=== PATIENT | female | born 1960 | race Caucasian/White ===

== ENCOUNTER → 2019-09-02 10:09 | Outpatient (CLI) | payer BC, SELFPAY ==
--- NOTE | ~2019-09-02 | XR_ITS ---
XR knee RT 3V 09/02/2019 10:54 INDICATION: Right knee pain PROCEDURE: 3 views right knee COMPARISON: No prior studies for comparison. FINDINGS: Fracture, dislocation or subluxation is not identified. No significant joint effusion. Ther e is chondrocalcinosis. The soft tissues appear within normal limits. No foreign bodies are identifi ed. IMPRESSION: 1: Chondrocalcinosis. Reviewed, dictated and finalized at location B. NG DESIGN SPECIALIST IMPRESSION: 1: Chondrocalcinosis.
== END ==
PROVIDERS: PCP Family Medicine; Visit Provider Physician Assistant
DX: M25.569 Pain in unspecified knee (principal)
CPT/HCPCS: 73562

== ENCOUNTER 2020-02-04 09:20 | Emergency (ER) | payer BC, SELFPAY ==
[2020-02-04 09:37] VITALS: BP 131/71; PULSE 62; RESP 16; TEMP 37.4; O2SAT 100
--- NOTE | 2020-02-04 09:53 | ED.EAR ---
HPI - Ear Problem General Chief complaint: Ear Stated complaint: left ear pain Time Seen by Provider: 02/04/20 09:54 Source: patient Mode of arrival: ambulatory Limitations: no limitations History of Present Illness HPI Narrative: Molly Vega is a 60 yo female with a PMH of irregular heart rate, hypothyroid, high cholesterol, osteoporosis, who comes to express care with left ear pain that started yesterday after working outside yesterday. States she has congestion, has recurrent left scalp tenderness with ear pain internal X and external. Is here for antibiotic, which she states takes care of this ear issue Related Data Home Medications Medication Instructions Recorded Confirmed atenolol 50 mg tablet 50 mg PO DAILY 09/01/19 09/01/19 estradiol 1 gm VAGINAL WEEKLY 09/01/19 09/01/19 Allergies Allergy/AdvReac Type Severity Reaction Status Date / Time adhesive tape Allergy Severe RASH Verified 09/02/19 10:04 pollen extracts Allergy Unknown Unknown Verified 09/02/19 10:04 Review of Systems Review of Systems: Narrative: CONSTITUTIONAL: Denies fever, chills, sweats. EYES: Denies visual changes, redness, discharge. ENT: Mild rhinorrhea, congestion, sore throat, left otalgia. CARDIOVASCULAR: Denies chest pain, palpitations, edema. RESPIRATORY: Denies dyspnea, wheezing, cough GASTROINTESTINAL: Denies abdominal pain, nausea, vomiting, diarrhea. GENITOURINARY: Denies dysuria, hematuria, abnormal discharge SKIN: Denies rash or itching. NEUROLOGIC: Denies numbness, or focal weakness. PSYCHIATRIC: Denies anxiety or depression. [facility] Past Medical History Medical History Breast cancer History of vaginal delivery x 2 HLD (hyperlipidemia) Hypertension Hypothyroidism Irregular heart rhythm Surgical History Surgical History H/O total hysterectomy with bilateral salpingo-oophorectomy (BSO) History of mastectomy Family History Family History Mother Carcinoma of colon Father Hypertension Other Family history of cardiovascular disease Social History Social History Smoking status: Never smoker Second hand tobacco smoke exposure: No Alcohol intake: current Comments At time of signature, I agree with nursing past medical, surgical, social and family history. There is no relevant family history pertinent to the presenting complaint. Exam Narrative: Exam Narrative: GENERAL: This is a well-nourished, well-developed patient, in mild distress. HEAD: normocephalic, atraumatic. EYES: Sclera clear/white. Vision is grossly intact. EARS: External ears normal, auditory canals clear on right, left ear is erythematous and with drainage, TMs normal without perforation. Hearing grossly intact. NOSE: External nose normal without nasal discharge, nares without redness, mild rhinorrhea. THROAT: Mucous membranes moist, posterior pharynx erythema NECK: Neck supple, CARDIOVASCULAR: Regular rate and rhythm without murmurs, gallops, or rubs. RESPIRATORY: Clear to auscultation. Breath sounds equal bilaterally. No wheezes, rales, or rhonchi. GASTROINTESTINAL: Abdomen soft, SKIN: warm, intact with no suspicious lesions or rash, good texture and turgor. NEURO: awake, alert, and oriented to person, place and time. There were no obvious focal neurologic abnormalities. Steady gait EXTREMITIES: Normal range of motion. BACK: Nontender without deformity Course Course Emergency Course: Discussed with client started on eardrops and antibiotic Patient states this is recurrent yearly for her and she needs several antibiotic to actually clear her ear pain Vital Signs Vital signs: Vital Signs Temperature 99.3 F 02/04/20 09:37 Pulse Rate 62 02/04/20 09:37 Respiratory Rate 16 02/04/20 09:37 Blood Pressure 131
== END 2020-02-04 10:14 | disposition home or self-care (01) ==
PROVIDERS: Emergency Provider Nurse Practitioner; PCP Family Medicine
DX: H60.312 Diffuse otitis externa, left ear (principal); E78.5 Hyperlipidemia, unspecified; I10 Essential (primary) hypertension; E03.9 Hypothyroidism, unspecified; Z85.3 Personal history of malignant neoplasm of breast; Z90.10 Acquired absence of unspecified breast and nipple
CPT/HCPCS: 99213; G0463

== ENCOUNTER → 2020-02-22 13:26 | Outpatient (CLI) | payer BC, SELFPAY ==
--- NOTE | ~2020-02-22 | DEXA_ITS ---
Bone Density Report Name: Molly Vega Age: 60 Sex: Female Ethnicity: White Date of : 1960 Indication: postmenopausal; screening for osteoporosis; height loss; hysterectomy; Referring Provider: Cristine Ribeiro Study: Bone densitometry was performed. Exam Date: February 22, 2020 Accession number: [id number] Bone Density: Region BMD T-score Z-score Classification AP Spine (L1-L4) 0.940 -1.0 0.4 Normal Femoral Neck (Left) 0.679 -1.5 -0.2 Osteopenia Total Hip (Left) 0.867 -0.6 0.3 Normal Femoral Neck (Right) 0.690 -1.4 -0.1 Osteopenia Total Hip (Right) 0.884 -0.5 0.5 Normal Total Hip Mean 0.876 -0.6 0.4 Normal World Health Organization criteria for BMD impression classify patients as: Normal (T-score at or above -1.0), Osteopenia (T-score between -1.0 and -2.5), or Osteoporosis (T-score at or below -2.5). 10-year Fracture Risk: FRAX not reported because: Treated for osteoporosis Clinical Information Provided by Patient: Is being treated for osteoporosis Has used the following medications: Actonel (i.e. risedronate), Vitamin D, Calcium Has the following medical conditions: Hysterectomy Patient maximum height was 61 Menopause Age: 40 Drinks caffeinated beverages Onset of menses at age 10 Number of children 2 Impression: The patient has low bone mass, based on the Left Femoral Neck T-score. Discussion: It is important to ask patients whether they are taking their medications and to encourage continued and appropriate compliance with their osteoporosis therapies to reduce fracture risk. It is also important to review their risk factors and encourage appropriate calcium and vitamin D intakes, exercise, fall prevention and other lifestyle measures. Follow-Up: Consider a repeat BMD and Vertebral Fracture Assessment (VFA) exam in 2 years or sooner if medically necessary, to reassess this patient's status. Reported by: [facility] on 02/22/2020 2:27:00 PM. Reviewed, dictated and finalized at location ACasie LYNCH
== END ==
PROVIDERS: PCP Family Medicine; Visit Provider Student in an Organized Health Care Education/Training Program
DX: Z78.0 Asymptomatic menopausal state (principal); M85.852 Other specified disorders of bone density and structure, left thigh; M85.851 Other specified disorders of bone density and structure, right thigh
CPT/HCPCS: 77080

== ENCOUNTER 2020-09-21 07:43 | Outpatient (CLI) | payer BC, SELFPAY ==
[2020-09-21 09:22] LABS: Hepatitis B Surface Antigen Negative (Negative)
[2020-09-21 09:28] LABS: HAV RESULT Negative (Negative); Hepatitis B Core IgM Result Negative (Negative)
[2020-09-21 09:40] LABS: Hepatitis C Virus Antibody Negative (Negative)
[2020-09-21 10:23] LABS: Alanine Aminotransferase 97 U/L (4-35); Albumin Level 4.1 g/dL (3.5-5.1); Alkaline Phosphatase 62 U/L (38-126); Aspartate Amino Transferase 60 U/L (14-36); Bilirubin,Total 0.4 mg/dL (0.2-1.3)
== END 2020-09-21 07:44 | disposition home or self-care (01) ==
PROVIDERS: PCP Family Medicine; Visit Provider Physician Assistant
DX: R79.89 Other specified abnormal findings of blood chemistry (principal)
CPT/HCPCS: 36415; 80074; 80076

== ENCOUNTER 2020-09-25 10:00 | Outpatient (CLI) | payer BC, SELFPAY ==
--- NOTE | ~2020-09-25 | US_ITS ---
US abdomen limited INDICATION: Abnormal laboratory values. PROCEDURE: Realtime right upper abdominal ultrasound. COMPARISON: No prior studies for comparison. FINDINGS: The pancreas is normal without focal mass or pancreatic ductal dilation. Liver echotexture is normal without focal mass or intrahepatic biliary dilatation. There is normal directional flow i n the portal vein. The gallbladder is normal without stones, gallbladder wall thickening or pericholecystic fluid. Comm on bile duct measures 3 mm. No sonographic Antonio's sign. IMPRESSION: 1: Normal limited abdominal ultrasound. Reviewed, dictated and finalized at location B.
== END 2020-09-25 10:01 | disposition home or self-care (01) ==
PROVIDERS: PCP Family Medicine; Visit Provider Physician Assistant
DX: R79.89 Other specified abnormal findings of blood chemistry (principal)
CPT/HCPCS: 76705

== ENCOUNTER → 2021-02-12 10:19 | Outpatient (CLI) | payer BC, SELFPAY ==
--- NOTE | ~2021-02-12 | XR_ITS ---
XR knee RT 3V 02/12/2021 10:45 Indication: Right knee pain Procedure: 3 views right knee Comparison: 09/02/2019 Findings: There is chondrocalcinosis. No fracture, subluxation or dislocation. No significant joint s pace narrowing. No foreign bodies. Impression: 1: Chondrocalcinosis of the right knee. Reviewed, dictated and finalized at location A. Impression: 1: Chondrocalcinosis of the right knee.
== END ==
PROVIDERS: PCP Family Medicine; Visit Provider Physician Assistant
DX: M11.261 Other chondrocalcinosis, right knee (principal)
CPT/HCPCS: 73562

== ENCOUNTER 2021-03-30 15:02 | Emergency (ER) | payer BC, SELFPAY ==
--- NOTE | ~2021-03-30 | XR_ITS ---
EXAMINATION: XR chest 2V DATE: 03/30/2021 15:29 INDICATION: Heart palpitations TECHNIQUE: PA and lateral views of the chest are obtained. COMPARISON: 04/23/2018 FINDINGS: The lungs are free of acute opacities. Calcified nodule of the left lower lobe is consisten t with old granulomatous disease. There is no pleural effusion or pneumothorax. The cardiomediastinal silhouette is normal. There is moderate thoracic spondylosis. There are changes of bilateral mastect kimberlyn and bilateral axillary lymph node dissection. IMPRESSION: 1. No acute cardiopulmonary abnormality. Reviewed, dictated and finalized at location A.
--- NOTE | 2021-03-30 15:03 | ECG_ITS ---
Measurements Intervals [place] Rate: 71 P: 50 [place]: 134 QRS: -27 QRSD: 83 T: 44 QT: 421 QTc: 459 Interpretive Statements SINUS RHYTHM VENTRICULAR PREMATURE COMPLEX POSSIBLE LEFT ATRIAL ENLARGEMENT CANNOT RULE OUT SEPTAL INFARCT, AGE INDETERMINATE ABNORMAL ECG Electronically Signed On 03-31-2021 8:58:48 CDT by Kem Moreno D.O.
[2021-03-30 15:04] VITALS: BP 166/67; PULSE 85; RESP 18; TEMP 36.7; O2SAT 100
[2021-03-30 15:17] LABS: Basophils Absolute Auto 0.1 K/mm3 (0.0-0.1); Basophils Percent Auto 0.6 % (0.2-1.2); Eosinophils Absolute Auto 0.4 K/mm3 (0-0.3); Eosinophils Percent Auto 4.1 % (0-4.4); Hematocrit 39.2 % (37.0-47.0); Hemoglobin 12.9 g/dL (12.0-15.0); Immature Granulocyte Absolute 0.02 K/mm3 (0.00-0.031); Immature Granulocyte Percent A 0.2 % (0-0.5); Lymphocytes Absolute Auto 3.11 K/mm3 (0.9-3.2); Lymphocytes Percent Auto 36.7 % (18.3-44.2); Mean Corpuscular HGB Conc 32.9 g/dl (32-36); Mean Corpuscular Hemoglobin 30.9 pg (26-34); Mean Platelet Volume 9.2 fl (7.4-10.4); Monocytes Absolute Auto 0.8 K/mm3 (0.1-0.6); Monocytes Percent Auto 9.6 % (2.6-8.5); Neutrophils Absolute Auto 4.1 K/mm3 (1.3-6.7); Neutrophils Percent Auto 48.8 % (45.5-73.1); Platelet Count Result 265 k/mm3 (150-375); Red Blood Count 4.17 M/mm3 (4.2-5.4); Red Cell Distribution Width 13.2 % (11.5-14.5); White Blood Count 8.5 K/mm3 (4.5-10.0)
[2021-03-30 15:29] LABS: Anion Gap 9 mmol/L (8-16); Blood Urea Nitrogen 23 mg/dL (7-17); Calcium 9.7 mg/dL (8.4-10.2); Carbon Dioxide 28 mmol/L (22-30); Chloride 101 mmol/L (98-107); Estimated Glomerular Filt Rate > 60; Glucose 111 mg/dL (65-110); Potassium 4.3 mmol/L (3.4-5.0); Sodium 138 mmol/L (137-145)
[2021-03-30 15:31] LABS: INR 0.9
[2021-03-30 15:32] LABS: Partial Thromboplastin Time 26.7 SECONDS (22.3-36.8)
[2021-03-30 15:40] LABS: Troponin I < 0.012 ng/mL (0.000-0.034)
--- NOTE | 2021-03-30 18:37 | PC.NURSE ---
pt to desk stating she is going to leave. pt amb out of ed with no issue and in no distress.
== END 2021-03-30 18:37 | disposition left against medical advice (07) ==
PROVIDERS: Emergency Provider Emergency Medicine; PCP Family Medicine
DX: R00.2 Palpitations (principal)
CPT/HCPCS: 36415; 71046; 80048; 84484; 85025; 85610; 85730; 93005; 99199

== ENCOUNTER 2021-08-29 09:26 | Emergency (ER) | payer BC, SELFPAY ==
[2021-08-29 09:37] VITALS: BP 116/73; PULSE 84; RESP 16; TEMP 37.3; O2SAT 100
--- NOTE | 2021-08-29 09:41 | ED.URI ---
HPI - URI/Sore Throat General Chief Complaint: Upper Respiratory Infection Stated Complaint: URI Time Seen by Provider: 08/29/21 10:00 Source: patient and RN notes reviewed Mode of arrival: ambulatory Limitations: no limitations History of Present Illness HPI Narrative: 61-year-old female who presents to [facility] with complaints of 1 week duration of low grade fevers, sinus pressure and drainage with scratchy throat. Patient states that she has left frontal headache and pressure to her face and has had copious amounts of nasal drainage. She reports that he has been taking Chastity and using Nasacort spray and has been taking Coricidin brand decongestant without improvement in her symptoms.Patient has had COVID, and Flu immuizations. MD elicited complaint: rhinorrhea and nasal congestion Related Data Home Medications Medication Instructions Recorded Confirmed atenolol 50 mg tablet 50 mg PO DAILY 09/01/19 08/29/21 aspirin 81 mg tablet,delayed 81 mg PO DAILY 02/07/20 08/29/21 release calcium carbonate 600 mg-vitamin 1 tablet PO DAILY 02/07/20 08/29/21 D3 20 mcg (800 unit) chewable tablet cholecalciferol (vitamin D3) 25 25 mcg PO DAILY 03/06/20 08/29/21 mcg (1,000 unit) capsule fexofenadine [Chastity] 180 mg PO DAILY 08/29/21 08/29/21 triamcinolone acetonide [Nasacort] 2 spray INTRANASAL DAILY 08/29/21 08/29/21 Allergies Allergy/AdvReac Type Severity Reaction Status Date / Time adhesive tape Allergy Severe RASH Verified 08/29/21 09:59 pollen extracts Allergy Unknown Unknown Verified 08/29/21 09:59 Review of Systems Review of Systems: CONSTITUTIONAL:Low grade fever, chills, or sweats. EYES: Denies visual changes, redness, or discharge. ENT: Positive for rhinorrhea, congestion, sore throat,no otalgia. CARDIOVASCULAR: Denies chest pain, palpitations, or edema. RESPIRATORY:Some cough denies dyspnea. GASTROINTESTINAL: Denies abdominal pain, nausea, vomiting, or diarrhea. GENITOURINARY: Denies dysuria or hematuria. SKIN: Denies rash or itching. MUSCULOSKELETAL: Denies back pain, joint pain, or myalgia. NEUROLOGIC: Positive for headache, numbness, or weakness. PSYCHIATRIC: Denies anxiety or depression. All systems reviewed & are unremarkable except as noted in HPI and below PMFSH Past Medical History Medical History Breast cancer History of vaginal delivery x 2 HLD (hyperlipidemia) Hypertension Hypothyroidism Irregular heart rhythm Normal colonoscopy (~11/2017) Repeat 5 years Squamous cell carcinoma of left shoulder Surgical History Surgical History H/O total hysterectomy with bilateral salpingo-oophorectomy (BSO) History of mastectomy bilaterally Family History Family History Mother Carcinoma of colon Heart disease Father Hypertension Celiac disease Arthritis Heart valve replaced Other Family history of cardiovascular disease Social History Social History Second hand tobacco smoke exposure: No Alcohol intake: current Alcohol use details: socially; seldom Substance use: never Substance use type: does not use Gender identity (if verbalized by the patient): Female Comments At time of signature, agree with nursing past medical, surgical, social and family history. There is no relevant family history pertinent to the presenting complaint Exam Narrative: GENERAL: Well-appearing, well-nourished, and in no acute distress. HEAD: Normocephalic, atraumatic. EYES: PERRLA and EOMI. ENT: Nares red with rhinorrhea no epistaxis. Mucous membranes moist.TM's normal with good light reflex, throat red with no lesions or exudates,no tonsil swelling, post nasal drainage present NECK: Supple. no lymphadenopathy CHEST: Clear to auscultation. No respiratory distress.SAO2 100%
== END 2021-08-29 10:20 | disposition home or self-care (01) ==
PROVIDERS: Emergency Provider Registered Nurse; PCP Family Medicine
DX: J01.90 Acute sinusitis, unspecified (principal); E78.5 Hyperlipidemia, unspecified; I10 Essential (primary) hypertension; E03.9 Hypothyroidism, unspecified; Z85.3 Personal history of malignant neoplasm of breast; Z85.828 Personal history of other malignant neoplasm of skin; Z90.13 Acquired absence of bilateral breasts and nipples; Z90.710 Acquired absence of both cervix and uterus
CPT/HCPCS: 99213; G0463

== ENCOUNTER → 2022-04-01 02:21 | Outpatient (CLI) | payer BC, SELFPAY ==
[2022-04-01 10:42] LABS: SARS-CoV-2 RNA PCR Positive
== END ==
PROVIDERS: PCP Physician Assistant; Visit Provider Physician Assistant
DX: U07.1 COVID-19 (principal)
CPT/HCPCS: C9803; U0003; U0005

== ENCOUNTER 2022-04-14 14:41 | Emergency (ER) | payer BC, SELFPAY ==
[2022-04-14 14:59] VITALS: BP 126/69; PULSE 75; RESP 16; TEMP 37.1; O2SAT 98
--- NOTE | 2022-04-14 15:03 | ED.EXTPRO ---
HPI - Extremity Problem General Chief complaint: Extremity Problem,Nontraumatic Stated complaint: Left Arm Swelling Time Seen by Provider: 04/14/22 15:03 Source: patient, RN notes reviewed and old records reviewed Mode of arrival: ambulatory Limitations: no limitations History of Present Illness HPI Narrative: 62-year-old female presents to the [facility] with complaints of left arm swelling. Was positive for COVID on 01 April, 13 days ago Related Data Home Medications Medication Instructions Recorded Confirmed atenolol 50 mg tablet 50 mg PO DAILY 09/01/19 04/14/22 aspirin 81 mg tablet,delayed 81 mg PO DAILY 02/07/20 04/14/22 release calcium carbonate 600 mg-vitamin 1 tablet PO DAILY 02/07/20 04/14/22 D3 20 mcg (800 unit) chewable tablet (Caltrate 600 plus D) cholecalciferol (vitamin D3) 25 25 mcg PO DAILY 03/06/20 04/14/22 mcg (1,000 unit) capsule fexofenadine 180 mg tablet 180 mg PO DAILY 08/29/21 04/14/22 triamcinolone acetonide 55 mcg 2 spray intranasal DAILY 08/29/21 04/14/22 nasal spray aerosol (Nasacort) Allergies Allergy/AdvReac Type Severity Reaction Status Date / Time adhesive tape Allergy Severe RASH Verified 04/14/22 14:53 pollen extracts Allergy Unknown Unknown Verified 04/14/22 14:53 Review of Systems Review of Systems: All systems reviewed & are unremarkable except as noted in HPI and below Constitutional: Constitutional: Reports no additional constitutional complaints, Denies chills and Denies fever(s) Eyes: Eyes: Reports no additional eye complaints ENT: Reports system reviewed and no additional complaints, except as documented Cardiovascular: Cardiovascular: Reports no additional cardiovascular complaints Respiratory: Respiratory: Reports no additional respiratory complaints Gastrointestinal: Gastrointestinal: Reports no additional gastrointestinal complaints Musculoskeletal: Musculoskeletal: Reports as per HPI Integumentary/Breasts: Skin/Breast: Reports system reviewed and no additional complaints, except as docu Neurologic: Reports system reviewed and no additional complaints, except as documented Psychiatric: Psychiatric: Reports no additional psychiatric complaints Allergic/Immunologic: Allergic/Immunologic: Reports no additional allergic/immunologic complaints PMFSH Past Medical History Medical History Breast cancer History of vaginal delivery x 2 HLD (hyperlipidemia) Hypertension Hypothyroidism Irregular heart rhythm Normal colonoscopy (~11/2017) Repeat 5 years Squamous cell carcinoma of left shoulder Surgical History Surgical History H/O total hysterectomy with bilateral salpingo-oophorectomy (BSO) History of mastectomy bilaterally Family History Family History Mother Carcinoma of colon Heart disease Father Hypertension Celiac disease Arthritis Heart valve replaced Other Family history of cardiovascular disease Social History Social History Smoking status: Never smoker Second hand tobacco smoke exposure: No Alcohol intake: current Alcohol use details: socially; seldom Substance use: never Substance use type: does not use Gender identity (if verbalized by the patient): Female Comments At the time of my signature, I reviewed and agree with the nursing past medical, surgical, social, and family history. There is no relevant family history pertinent to the patient complaint. Exam Const: General: healthy appearing, no acute distress, alert and well nourished Nutritional Appearance: well nourished Orientation/consciousness: patient oriented x3 Limitations: no limitations HENMT: Head: normal to inspection Ears: external ears normal Eyes: General: appearance normal, both eyes and all related struc
== END 2022-04-14 15:26 | disposition home or self-care (01) ==
PROVIDERS: Emergency Provider Nurse Practitioner; PCP Family Medicine
DX: M79.9 Soft tissue disorder, unspecified (principal); E78.5 Hyperlipidemia, unspecified; E03.9 Hypothyroidism, unspecified; Z85.3 Personal history of malignant neoplasm of breast; Z85.828 Personal history of other malignant neoplasm of skin; Z79.82 Long term (current) use of aspirin; Z90.13 Acquired absence of bilateral breasts and nipples
CPT/HCPCS: 99211; G0463

== ENCOUNTER → 2022-06-04 10:59 | Outpatient (CLI) | payer BC, SELFPAY ==
--- NOTE | ~2022-06-04 | DEXA_ITS ---
Bone Density Report Name: DINESH MAHER Age: 62 Sex: Female Ethnicity: White Date of : 1960 Indication: monitoring treatment; height loss; hysterectomy; postmenopausal Referring Provider: Cristine Ribeiro Study: Bone densitometry was performed. Exam Date: June 04, 2022 Accession number: [id number] Bone Density: Region BMD T-score Z-score Classification AP Spine (L1-L4) 1.029 -0.2 1.4 Normal Femoral Neck (Left) 0.713 -1.2 0.2 Osteopenia Total Hip (Left) 0.876 -0.5 0.5 Normal Femoral Neck (Right) 0.674 -1.6 -0.2 Osteopenia Total Hip (Right) 0.857 -0.7 0.4 Normal Total Hip Mean 0.867 -0.6 0.5 Normal World Health Organization criteria for BMD impression classify patients as: Normal (T-score at or above -1.0), Osteopenia (T-score between -1.0 and -2.5), or Osteoporosis (T-score at or below -2.5). 10-year Fracture Risk: FRAX not reported because: Treated for osteoporosis Previous Exams: Region Exam Age BMD T-score BMD Change BMD Change Date g/cm2 vs Baseline vs Previous AP Spine(L1-L4) 06/04/2022 62 1.029 -0.2 0.089* 0.089* 02/22/2020 60 0.940 -1.0 Total Hip(Left) 06/04/2022 62 0.876 -0.5 0.010 0.010 02/22/2020 60 0.867 -0.6 Total Hip(Right) 06/04/2022 62 0.857 -0.7 -0.027 -0.027 02/22/2020 60 0.884 -0.5 *Denotes significance at 95% confidence level, LSC for AP Spine = 0.022 g/cm2, LSC for Total Hip = 0.027 g/cm2 Clinical Information Provided by Patient: Is being treated for osteoporosis Has used the following medications: Actonel (i.e. risedronate), Vitamin D, Calcium Has the following medical conditions: Hysterectomy Patient maximum height was 61 Menopause Age: 40 Drinks caffeinated beverages Onset of menses at age 10 Number of children 2 Impression: The patient has low bone mass, based on the Right Femoral Neck T-score. No significant bone loss was observed. Discussion: PATIENT UNDER TREATMENT WITH NO SIGNIFICANT BMD LOSS SINCE LAST EXAM. In an untreated patient, BMD typically declines with age. A lack of decline or gain is usually a sign that treatment is efficacious and fracture risk is reduced. It is important to ask patients whether they are taking their medications and to encourage continued and appropriate compliance with their osteoporosis therapies to reduce fracture risk. It is also important to review their risk factors and encourage appropriate calcium an
== END ==
PROVIDERS: PCP Family Medicine; Visit Provider Student in an Organized Health Care Education/Training Program
DX: Z78.0 Asymptomatic menopausal state (principal); M85.852 Other specified disorders of bone density and structure, left thigh; M85.851 Other specified disorders of bone density and structure, right thigh
CPT/HCPCS: 77080

== ENCOUNTER 2022-09-19 09:40 | Emergency (ER) | payer BC, SELFPAY ==
[2022-09-19 09:54] VITALS: BP 130/86; PULSE 79; RESP 16; TEMP 37.6; O2SAT 99
--- NOTE | 2022-09-19 10:17 | ED.EAR ---
HPI - Ear Problem General Chief complaint: Upper Respiratory Infection Stated complaint: swollen lymph nodes, left ear pressure sore throat Time Seen by Provider: 09/19/22 10:17 Source: patient Mode of arrival: ambulatory Limitations: no limitations History of Present Illness HPI Narrative: 62-year-old female presents with complaint nasal congestion, sinus pressure, postnasal drainage, sore throat, left ear pain for 10 days. Patient is taking [id number] Coricidin and Nasacort. Symptoms are not improving. States left ear pain started yesterday. Feels like left side of face is swollen. Afebrile. All systems reviewed and negative except as noted above. Related Data Home Medications Medication Instructions Recorded Confirmed atenolol 50 mg tablet 50 mg PO DAILY 09/01/19 04/14/22 aspirin 81 mg tablet,delayed 81 mg PO DAILY 02/07/20 04/14/22 release calcium carbonate 600 mg-vitamin 1 tablet PO DAILY 02/07/20 04/14/22 D3 20 mcg (800 unit) chewable tablet (Caltrate 600 plus D) cholecalciferol (vitamin D3) 25 25 mcg PO DAILY 03/06/20 04/14/22 mcg (1,000 unit) capsule fexofenadine 180 mg tablet 180 mg PO DAILY 08/29/21 04/14/22 triamcinolone acetonide 55 mcg 2 spray intranasal DAILY 08/29/21 04/14/22 nasal spray aerosol (Nasacort) Allergies Allergy/AdvReac Type Severity Reaction Status Date / Time adhesive tape Allergy Severe RASH Verified 09/19/22 10:10 pollen extracts Allergy Unknown Unknown Verified 09/19/22 10:10 Review of Systems Review of Systems: CONSTITUTIONAL: Denies fever, chills, or sweats. EYES: Denies visual changes, redness, or discharge. ENT: Reports rhinorrhea, congestion, sinus pressure,sore throat, and left ear pain. CARDIOVASCULAR: Denies chest pain, palpitations, or edema. RESPIRATORY: Denies cough or dyspnea. GASTROINTESTINAL: Denies abdominal pain, nausea, vomiting, or diarrhea. GENITOURINARY: Denies dysuria or hematuria. SKIN: Denies rash or itching. MUSCULOSKELETAL: Denies back pain, joint pain, or myalgia. NEUROLOGIC: Denies headache, numbness, or weakness. PSYCHIATRIC: Denies anxiety or depression. All other systems reviewed are negative, except as documented in HPI. [facility] Past Medical History Medical History Breast cancer History of vaginal delivery x 2 HLD (hyperlipidemia) Hypertension Hypothyroidism Irregular heart rhythm Normal colonoscopy (~11/2017) Repeat 5 years Squamous cell carcinoma of left shoulder Surgical History Surgical History H/O total hysterectomy with bilateral salpingo-oophorectomy (BSO) History of mastectomy bilaterally Family History Family History Mother Carcinoma of colon Heart disease Father Hypertension Celiac disease Arthritis Heart valve replaced Other Family history of cardiovascular disease Social History Social History Smoking status: Never smoker Second hand tobacco smoke exposure: No Alcohol intake: current Alcohol use details: socially; seldom Substance use: never Substance use type: does not use Living arrangements: with family Occupation/Education: retired Gender identity (if verbalized by the patient): Female Comments At time of signature, agree with nursing past medical, surgical, social and family history. There is no relevant family history pertinent to the presenting complaint. Exam Narrative: GENERAL: This is a well-nourished, well-developed patient, in no apparent distress. HEAD: normocephalic, atraumatic. EYES: PERRL. Sclera clear/white. Vision is grossly intact. EARS: External ears normal, auditory canals clear and without drainage, fluid bilateral TMs, worse to left TM without erythema or perforation. NOSE: External nose normal with Mild erythem
== END 2022-09-19 10:38 | disposition home or self-care (01) ==
PROVIDERS: Emergency Provider Nurse Practitioner Family; PCP Family Medicine
DX: J01.90 Acute sinusitis, unspecified (principal); B96.89 Other specified bacterial agents as the cause of diseases classified elsewhere; E78.5 Hyperlipidemia, unspecified; I10 Essential (primary) hypertension; E03.9 Hypothyroidism, unspecified; Z85.3 Personal history of malignant neoplasm of breast
CPT/HCPCS: 99213; G0463

== ENCOUNTER 2023-04-28 01:22 | Day surgery (SDC) | payer BC, SELFPAY ==
[2023-04-16 15:30] VITALS: BMI 23.9
[2023-04-28 06:13] VITALS: BP 140/89; PULSE 81; RESP 18; TEMP 36.3; O2SAT 98; BMI 23.8
[2023-04-28] MEDS: LACTATED RINGERS 1,000 ML 150 ML IV CONT (06:33)
--- NOTE | 2023-04-28 07:19 | WPDANESEPPF ---
Anes - Initial Pre Proc Eval Procedure: Operation Date: 04/28/23 07:30 Proposed Procedures p Colonoscopy - Easton Chadwick MD Date/Time: 04/28/23 07:19 Surgeon: Easton Chadwick MD Pre Op Diagnosis: history of colon polyps,History of colon cancer Patient Data Age: 63 Gender: F Height: 1.5 m Weight: 53.4 kg Last Vital Signs Temp 97.3 F L 04/28/23 06:13 Pulse 81 04/28/23 06:13 Resp 18 04/28/23 06:13 BP 140/89 04/28/23 06:13 Pulse Ox 98 04/28/23 06:13 O2 Del Method Room Air 04/28/23 06:13 Allergies Allergy/AdvReac Type Severity Reaction Status Date / Time adhesive tape Allergy Severe RASH Verified 04/28/23 06:20 amoxicillin Allergy Severe Swelling Verified 04/28/23 06:20 of Lip/Tongue/Throat pollen extracts Allergy Unknown Unknown Verified 04/28/23 06:20 Home Medications Medication Instructions Recorded Confirmed Type atenolol 50 mg tablet 50 mg PO DAILY 09/01/19 04/28/23 History aspirin 81 mg tablet,delayed 81 mg PO DAILY 02/07/20 04/28/23 History release calcium carbonate 600 mg-vitamin 1 tablet PO DAILY 02/07/20 04/28/23 History D3 20 mcg (800 unit) chewable tablet (Caltrate 600 plus D) cholecalciferol (vitamin D3) 25 25 mcg PO DAILY 03/06/20 04/28/23 History mcg (1,000 unit) capsule fexofenadine 180 mg tablet 180 mg PO DAILY 08/29/21 04/28/23 History triamcinolone acetonide 55 mcg 2 spray intranasal DAILY 08/29/21 04/28/23 History nasal spray aerosol (Nasacort) estradiol 0.01% (0.1 mg/gram) 1 g vaginal 2XW #42.5 grams 02/20/22 04/28/23 Rx vaginal cream (Estrace) meloxicam 15 mg tablet 15 mg PO DAILY #30 tabs 09/25/22 04/28/23 Rx rosuvastatin 10 mg tablet See Rx Instructions .Route 11/10/22 04/28/23 Rx .COMPLEX #90 tabs Synthroid 75 mcg tablet 75 mcg PO DAILY #90 tabs 01/05/23 04/28/23 Rx (levothyroxine) risedronate 35 mg tablet See Rx Instructions .Route 04/13/23 04/28/23 Rx .COMPLEX #12 tabs Patient hx anesthesia problems: none Family hx anesthesia problems: none Results Review: All pre-operative results and documents have been reviewed as part of the pre-operative evaluation. [facility] Past Medical History Medical History Breast cancer History of vaginal delivery x 2 HLD (hyperlipidemia) Hypothyroidism Irregular heart beat Seeing cardiology Irregular heart rhythm Normal colonoscopy (~11/2017) Repeat 5 years Squamous cell carcinoma of left shoulder Surgical History Surgical History H/O total hysterectomy with bilateral salpingo-oophorectomy (BSO) History of mastectomy bilaterally Family History Family History Mother Carcinoma of colon Heart disease Father Hypertension Celiac disease Arthritis Heart valve replaced Other Family history of cardiovascular disease Social History Social History (Updated 11/28/22 @ 08:27 by Ayesha Neal [facility]) Smoking status: Never smoker Second hand tobacco smoke exposure: No Alcohol intake: current Drinks per week: 1 Alcohol use details: socially; seldom Substance use: never Substance use type: does not use Lack of Transportation: No Lack of Food: Never True Current Housing: I Have Housing Concerned About Future Housing: No Difficulty Paying Gas/Electric Bills: No Difficulty Paying for Meds: No Currently Unemployed: No Education: Associate Degree Difficulty w/ Childcare or Family Care: No Living arrangements: with family Occupation/Education: retired Gender identity (if verbalized by the patient): Female Spiritual care concerns: No Anes - Eval Final PreProcedure Day of Procedure 04/28/23 07:19 Patient weight: normal Heart: regular rate and rhythm Lungs: clear to auscultation Airway: Mallampati scale class II Neurological: alert and o
--- NOTE | 2023-04-28 07:27 | PM.HPGS ---
History of Present Illness History of Present Illness Consent: Risks, benefits, and alternatives have been discussed and questions answered. Patient agrees to proceed with procedure. Chief complaint: history of colon polyps,Fam Hx of colon cancer Narrative: Molly Vega is a 63 year old female Presents for screening colonoscopy. Patient's current weight appetite and bowel movements are normal. Patient denies abdominal pain. She has had no bleeding. Family history is significant that her mother had colon cancer. Patient was found to have adenomatous colon polyps at the time of last colonoscopy in 2018. Review of Systems Review of Systems: Review of systems noncontributory. [facility] Past Medical History Medical History Breast cancer History of vaginal delivery x 2 HLD (hyperlipidemia) Hypothyroidism Irregular heart beat Seeing cardiology Irregular heart rhythm Normal colonoscopy (~11/2017) Repeat 5 years Squamous cell carcinoma of left shoulder Surgical History Surgical History H/O total hysterectomy with bilateral salpingo-oophorectomy (BSO) History of mastectomy bilaterally Family History Family History Mother Carcinoma of colon Heart disease Father Hypertension Celiac disease Arthritis Heart valve replaced Other Family history of cardiovascular disease Social History Social History (Updated 11/28/22 @ 08:27 by Ayesha Neal CMA) Smoking status: Never smoker Second hand tobacco smoke exposure: No Alcohol intake: current Drinks per week: 1 Alcohol use details: socially; seldom Substance use: never Substance use type: does not use Lack of Transportation: No Lack of Food: Never True Current Housing: I Have Housing Concerned About Future Housing: No Difficulty Paying Gas/Electric Bills: No Difficulty Paying for Meds: No Currently Unemployed: No Education: Associate Degree Difficulty w/ Childcare or Family Care: No Living arrangements: with family Occupation/Education: retired Gender identity (if verbalized by the patient): Female Spiritual care concerns: No Meds Home Medications and Allergies Home Medications Medication Instructions Recorded Confirmed Type atenolol 50 mg tablet 50 mg PO DAILY 09/01/19 04/28/23 History aspirin 81 mg tablet,delayed 81 mg PO DAILY 02/07/20 04/28/23 History release calcium carbonate 600 mg-vitamin 1 tablet PO DAILY 02/07/20 04/28/23 History D3 20 mcg (800 unit) chewable tablet (Caltrate 600 plus D) cholecalciferol (vitamin D3) 25 25 mcg PO DAILY 03/06/20 04/28/23 History mcg (1,000 unit) capsule fexofenadine 180 mg tablet 180 mg PO DAILY 08/29/21 04/28/23 History triamcinolone acetonide 55 mcg 2 spray intranasal DAILY 08/29/21 04/28/23 History nasal spray aerosol (Nasacort) estradiol 0.01% (0.1 mg/gram) 1 g vaginal 2XW #42.5 grams 02/20/22 04/28/23 Rx vaginal cream (Estrace) meloxicam 15 mg tablet 15 mg PO DAILY #30 tabs 09/25/22 04/28/23 Rx rosuvastatin 10 mg tablet See Rx Instructions .Route 11/10/22 04/28/23 Rx .COMPLEX #90 tabs Synthroid 75 mcg tablet 75 mcg PO DAILY #90 tabs 01/05/23 04/28/23 Rx (levothyroxine) risedronate 35 mg tablet See Rx Instructions .Route 04/13/23 04/28/23 Rx .COMPLEX #12 tabs Allergies Allergy/AdvReac Type Severity Reaction Status Date / Time adhesive tape Allergy Severe RASH Verified 04/28/23 06:20 amoxicillin Allergy Severe Swelling Verified 04/28/23 06:20 of Lip/Tongue/Throat pollen extracts Allergy Unknown Unknown Verified 04/28/23 06:20 Vital Signs Vital Signs - 24 hr 04/28/23 06:13 Temperature 97.3 F L Pulse Rate 81 Respiratory Rate 18 Blood Pressure 140/89 Pulse Oximetry 98 Oxygen Delivery Room Air Exam Narrative:
[2023-04-28 07:54] VITALS: BP 106/59; PULSE 74; RESP 18; O2SAT 96
[2023-04-28 08:04] VITALS: BP 136/79; PULSE 77; RESP 20; O2SAT 99
[2023-04-28 08:14] VITALS: BP 141/82; PULSE 64; RESP 20; O2SAT 99
== END 2023-04-28 08:24 | disposition home or self-care (01) ==
PROVIDERS: PCP Family Medicine; Visit Provider Internal Medicine Gastroenterology
PROC: 0DJD8ZZ Inspection of Lower Intestinal Tract, Via Natural or Artificial Opening Endoscopic (ICD-10-PCS; CPT 45378; principal; 2023-04-28 07:30)
DX: Z12.11 Encounter for screening for malignant neoplasm of colon (principal); D12.2 Benign neoplasm of ascending colon; K63.5 Polyp of colon; K64.8 Other hemorrhoids; E03.9 Hypothyroidism, unspecified; E78.5 Hyperlipidemia, unspecified; Z85.3 Personal history of malignant neoplasm of breast; Z79.82 Long term (current) use of aspirin
CPT/HCPCS: 45385; 88305; J2704; J7120

== ENCOUNTER 2023-06-19 08:07 | Emergency (ER) | payer BC, SELFPAY ==
[2023-06-19 08:18] VITALS: BP 147/83; PULSE 73; RESP 16; TEMP 37.1; O2SAT 100
--- NOTE | 2023-06-19 08:34 | ED.URI ---
HPI - URI/Sore Throat General Chief Complaint: Upper Respiratory Infection Stated Complaint: Sore Throat Time Seen by Provider: 06/19/23 08:22 Source: patient and RN notes reviewed Mode of arrival: ambulatory Limitations: no limitations History of Present Illness HPI Narrative: Patient presents today complaining of a 2 day history of rhinorrhea, headache, sore throat, with sore throat that started last night. Denies fever or any additional symptoms. She has taken Coricidin HBP with mild relief and currently rates her pain 04/07. She did a home COVID test yesterday that was negative. Related Data Home Medications Medication Instructions Recorded Confirmed atenolol 50 mg tablet 50 mg PO DAILY 09/01/19 04/28/23 aspirin 81 mg tablet,delayed 81 mg PO DAILY 02/07/20 04/28/23 release calcium carbonate 600 mg-vitamin 1 tablet PO DAILY 02/07/20 04/28/23 D3 20 mcg (800 unit) chewable tablet (Caltrate 600 plus D) cholecalciferol (vitamin D3) 25 25 mcg PO DAILY 03/06/20 04/28/23 mcg (1,000 unit) capsule fexofenadine 180 mg tablet 180 mg PO DAILY 08/29/21 04/28/23 triamcinolone acetonide 55 mcg 2 spray intranasal DAILY 08/29/21 04/28/23 nasal spray aerosol (Nasacort) Allergies Allergy/AdvReac Type Severity Reaction Status Date / Time adhesive tape Allergy Severe RASH Verified 04/28/23 06:20 amoxicillin Allergy Severe Swelling Verified 04/28/23 06:20 of Lip/Tongue/Throat pollen extracts Allergy Unknown Unknown Verified 04/28/23 06:20 Review of Systems Review of Systems: CONSTITUTIONAL: Denies body aches, fever, chills, or sweats. EYES: Denies visual changes, redness, or discharge. ENT: Denies congestion, or otalgia.+ rhinorrhea, sore throat CARDIOVASCULAR: Denies chest pain, palpitations, or edema. RESPIRATORY: Denies cough or dyspnea. GASTROINTESTINAL: Denies abdominal pain, nausea, vomiting, or diarrhea. GENITOURINARY: Denies dysuria or hematuria. SKIN: Denies rash, itching, or wounds. MUSCULOSKELETAL: Denies back pain, joint pain, or myalgia. NEUROLOGIC: Denies numbness, tingling, or weakness.+ headache PSYCH: Denies depression or anxiety. [facility] Past Medical History Medical History Breast cancer History of vaginal delivery x 2 HLD (hyperlipidemia) Hypothyroidism Irregular heart beat Seeing cardiology Irregular heart rhythm Normal colonoscopy (~11/2017) Repeat 5 years Squamous cell carcinoma of left shoulder Surgical History Surgical History H/O total hysterectomy with bilateral salpingo-oophorectomy (BSO) History of mastectomy bilaterally Family History Family History Mother Carcinoma of colon Heart disease Father Hypertension Celiac disease Arthritis Heart valve replaced Other Family history of cardiovascular disease Social History Social History Smoking status: Never smoker Second hand tobacco smoke exposure: No Alcohol intake: current Drinks per week: 1 Alcohol use details: socially; seldom Substance use: never Substance use type: does not use Lack of Transportation: No Lack of Food: Never True Current Housing: I Have Housing Concerned About Future Housing: No Difficulty Paying Gas/Electric Bills: No Difficulty Paying for Meds: No Currently Unemployed: No Education: Associate Degree Difficulty w/ Childcare or Family Care: No Living arrangements: with family Occupation/Education: retired Gender identity (if verbalized by the patient): Female Spiritual care concerns: No Comments At time of signature, I have reviewed and agree with nursing past medical, surgical, social and family history unless otherwise noted. Please see nursing chart for further information. There is no r
== END 2023-06-19 08:52 | disposition home or self-care (01) ==
PROVIDERS: Emergency Provider Nurse Practitioner; PCP Family Medicine
DX: J06.9 Acute upper respiratory infection, unspecified (principal); E78.5 Hyperlipidemia, unspecified; E03.9 Hypothyroidism, unspecified; Z85.828 Personal history of other malignant neoplasm of skin; Z85.3 Personal history of malignant neoplasm of breast; Z90.13 Acquired absence of bilateral breasts and nipples; Z90.710 Acquired absence of both cervix and uterus
CPT/HCPCS: 87081; 87880; 99213; G0463

== ENCOUNTER → 2023-07-22 10:12 | Outpatient (CLI) | payer BC, SELFPAY ==
--- NOTE | ~2023-07-22 | CT_ITS ---
CT of the Abdomen: Indication: Epigastric swelling Technique: 2.5 mm axial scans were obtained through the abdomen following intravenous administration of 100 cc of Omnipaque 350. Dose reduction technique was used on this scan by utilizing automated ex posure control and iterative reconstruction technique. The dose-length product (DLP) was 194.50 mGy-c m. Findings: Scans through the lung bases demonstrate large calcified left basilar granuloma. The liver, spleen, pancreas, gallbladder, adrenals and kidneys are within normal limits. There are at herosclerotic calcifications of the aorta. . No lymphadenopathy. Visualized bowel loops are unremarkable. No ascites. Impression: No significant abnormalities seen. Reviewed, dictated and finalized at location M. ITAL ADMISSIONS CLERK Impression: No significant abnormalities seen.
[2023-07-22 10:31] LABS: Estimated Glomerular Filt Rate > 60
== END ==
PROVIDERS: PCP Family Medicine; Visit Provider Registered Nurse
DX: R19.06 Epigastric swelling, mass or lump (principal)
CPT/HCPCS: 74160; Q9967

== ENCOUNTER 2024-01-17 15:01 | Emergency (ER) | payer BC, SELFPAY ==
--- NOTE | ~2024-01-17 | XR_ITS ---
EXAMINATION: XR toe 2nd LT min 2V DATE: 01/17/2024 15:21 INDICATION: Stubbed left toe TECHNIQUE: Dorsal plantar, lateral and 2 oblique views of the 01/26/2015 were obtained. COMPARISON: Left foot radiographs dated 01/26/2015 FINDINGS: Hallux valgus. Bone alignment is otherwise normal. No acute fracture. Moderate to severe osteoarthrit is at the second and third tarsal metatarsal joints with suggestion of erosions versus subarticular c ystlike changes at the second tarsal metatarsal joint. IMPRESSION: No acute osseous abnormality. Reviewed, dictated and finalized at location A.
--- NOTE | 2024-01-17 15:03 | ED.EXTPRO ---
HPI - Extremity Problem General Chief complaint: Extremity Injury, Lower Stated complaint: Left Foot Toe Pain Time Seen by Provider: 01/17/24 15:02 Source: patient Mode of arrival: ambulatory Limitations: no limitations History of Present Illness HPI Narrative: Claudette is a 64-year-old female patient presenting to the clinic today with complaints of left 2nd toe pain. She reports she hit her toe yesterday on the bottom of the ladder step when trying to step up on the ladder. Is concerned that it may be fractured. Related Data Home Medications Medication Instructions Recorded Confirmed atenolol 50 mg tablet 50 mg PO DAILY 09/01/19 01/17/24 aspirin 81 mg tablet,delayed 81 mg PO DAILY 02/07/20 01/17/24 release calcium carbonate 600 mg-vitamin 1 tablet PO DAILY 02/07/20 01/17/24 D3 20 mcg (800 unit) chewable tablet (Caltrate 600 plus D) cholecalciferol (vitamin D3) 25 25 mcg PO DAILY 03/06/20 01/17/24 mcg (1,000 unit) capsule fexofenadine 180 mg tablet 180 mg PO DAILY 08/29/21 01/17/24 triamcinolone acetonide 55 mcg 2 spray intranasal DAILY 08/29/21 01/17/24 nasal spray aerosol (Nasacort) rosuvastatin 20 mg tablet 20 mg PO DAILY 10/15/23 01/17/24 Allergies Allergy/AdvReac Type Severity Reaction Status Date / Time adhesive tape Allergy Severe RASH Verified 01/17/24 15:02 amoxicillin Allergy Severe Swelling Verified 01/17/24 15:02 of Lip/Tongue/Throat pollen extracts Allergy Unknown Unknown Verified 01/17/24 15:02 Review of Systems Review of Systems: Pertinent positives per HPI. Patient denies any fever, chills, rash, headache, visual changes, dizziness, cough, runny nose, sore throat, shortness of breath, chest pain, palpitations, nausea, vomiting, diarrhea, constipation, abdominal pain, or any urinary issues. [facility] Past Medical History Medical History Breast cancer History of vaginal delivery x 2 HLD (hyperlipidemia) Hypothyroidism Irregular heart beat Seeing cardiology Irregular heart rhythm Normal colonoscopy (~11/2017) Repeat 5 years Squamous cell carcinoma of left shoulder Surgical History Surgical History H/O total hysterectomy with bilateral salpingo-oophorectomy (BSO) History of mastectomy bilaterally Family History Family History Mother Carcinoma of colon Heart disease Father Hypertension Celiac disease Arthritis Heart valve replaced Other Family history of cardiovascular disease Social History Social History Smoking status: Never smoker Second hand tobacco smoke exposure: No Alcohol intake: current Drinks per week: 1 Alcohol use details: socially; seldom Substance use: never Substance use type: does not use Lack of Transportation: No Lack of Food: Never True Current Housing: I Have Housing Concerned About Future Housing: No Difficulty Paying Gas/Electric Bills: No Difficulty Paying for Meds: No Currently Unemployed: No Education: Associate Degree Difficulty w/ Childcare or Family Care: No Living arrangements: with family Occupation/Education: retired Gender identity (if verbalized by the patient): Female Spiritual care concerns: No Comments At the time of my signature, I reviewed and agree with the nursing past medical, surgical, social, and family history. There is no relevant family history pertinent to the patient complaint. Exam Narrative: General: Well-developed, well nourished, in no apparent distress Head: Normocephalic, atraumatic. Cardio: Regular rate and rhythm, s1 and s2 normal, no murmur appreciated. Resp: Clear to auscultation bilaterally, no rhonchi, rales, wheezing or rubs. Musculoskeletal: No deformity, non-tender to palpation, grossly normal range o
[2024-01-17 15:08] VITALS: BP 137/74; PULSE 87; RESP 16; TEMP 36.4; O2SAT 100
== END 2024-01-17 16:00 | disposition home or self-care (01) ==
PROVIDERS: Emergency Provider Nurse Practitioner Family; PCP Family Medicine
DX: S90.122A Contusion of left lesser toe(s) without damage to nail, initial encounter (principal); W22.8XXA Striking against or struck by other objects, initial encounter; E78.5 Hyperlipidemia, unspecified; E03.9 Hypothyroidism, unspecified; Z85.3 Personal history of malignant neoplasm of breast; Z90.13 Acquired absence of bilateral breasts and nipples; Z85.828 Personal history of other malignant neoplasm of skin
CPT/HCPCS: 73660; 99213; G0463

== ENCOUNTER 2024-03-14 09:14 | Emergency (ER) | payer BC, SELFPAY ==
[2024-03-14 09:24] VITALS: BP 153/83; PULSE 59; RESP 16; TEMP 37.2; O2SAT 100
--- NOTE | 2024-03-14 09:47 | ED.EAR ---
HPI - Ear Problem General Chief complaint: Ear Stated complaint: left ear/neck swollen Time Seen by Provider: 03/14/24 09:40 Source: patient Mode of arrival: ambulatory Limitations: no limitations History of Present Illness HPI Narrative: Claudette is a 64-year-old female patient presenting to the clinic today with complaints of left ear congestion and left-sided posterior neck swelling/pain. She reports that this has been going on for about 3 weeks. Had cold symptoms 1 week ago with left-sided ear pain. The left-sided ear pain has resolved however she feels as though there may be fluid in her ear. Also noted a swollen lymph node to the left posterior cervical. No fever or chills. Denies sore throat. Denies any recent weight loss. Related Data Home Medications Medication Instructions Recorded Confirmed atenolol 50 mg tablet 50 mg PO DAILY 09/01/19 03/14/24 aspirin 81 mg tablet,delayed 81 mg PO DAILY 02/07/20 03/14/24 release calcium carbonate 600 mg-vitamin 1 tablet PO DAILY 02/07/20 03/14/24 D3 20 mcg (800 unit) chewable tablet (Caltrate 600 plus D) cholecalciferol (vitamin D3) 25 25 mcg PO DAILY 03/06/20 03/14/24 mcg (1,000 unit) capsule fexofenadine 180 mg tablet 180 mg PO DAILY 08/29/21 03/14/24 triamcinolone acetonide 55 mcg 2 spray intranasal DAILY 08/29/21 03/14/24 nasal spray aerosol (Nasacort) rosuvastatin 20 mg tablet 20 mg PO DAILY 10/15/23 03/14/24 Allergies Allergy/AdvReac Type Severity Reaction Status Date / Time adhesive tape Allergy Severe RASH Verified 03/14/24 09:17 amoxicillin Allergy Severe Swelling Verified 03/14/24 09:17 of Lip/Tongue/Throat pollen extracts Allergy Unknown Unknown Verified 03/14/24 09:17 Review of Systems Review of Systems: Pertinent positives per HPI. Patient denies any fever, chills, rash, headache, visual changes, dizziness, cough, runny nose, sore throat, shortness of breath, chest pain, palpitations, nausea, vomiting, diarrhea, constipation, abdominal pain, or any urinary issues. [facility] Past Medical History Medical History Breast cancer History of vaginal delivery x 2 HLD (hyperlipidemia) Hypothyroidism Irregular heart beat Seeing cardiology Irregular heart rhythm Normal colonoscopy (~11/2017) Repeat 5 years Squamous cell carcinoma of left shoulder Surgical History Surgical History H/O total hysterectomy with bilateral salpingo-oophorectomy (BSO) History of mastectomy bilaterally Family History Family History Mother Carcinoma of colon Heart disease Father Hypertension Celiac disease Arthritis Heart valve replaced Other Family history of cardiovascular disease Social History Social History Smoking status: Never smoker Second hand tobacco smoke exposure: No Alcohol intake: current Drinks per week: 1 Alcohol use details: socially; seldom Substance use: never Substance use type: does not use Lack of Transportation: No Lack of Food: Never True Current Housing: I Have Housing Concerned About Future Housing: No Difficulty Paying Gas/Electric Bills: No Difficulty Paying for Meds: No Currently Unemployed: No Education: Associate Degree Difficulty w/ Childcare or Family Care: No Living arrangements: with family Occupation/Education: retired Gender identity (if verbalized by the patient): Female Spiritual care concerns: No Comments At the time of my signature, I reviewed and agree with the nursing past medical, surgical, social, and family history. There is no relevant family history pertinent to the patient complaint. Exam Narrative: General: Well-developed, well nourished, in no apparent distress Head: Normocephalic, atraumatic Eyes: Pupi
== END 2024-03-14 09:53 | disposition home or self-care (01) ==
PROVIDERS: Emergency Provider Nurse Practitioner Family; PCP Family Medicine
DX: R59.1 Generalized enlarged lymph nodes (principal); Z79.82 Long term (current) use of aspirin; E78.5 Hyperlipidemia, unspecified; E03.9 Hypothyroidism, unspecified; Z85.3 Personal history of malignant neoplasm of breast
CPT/HCPCS: 99211; G0463

== ENCOUNTER 2024-03-21 11:52 | Outpatient (CLI) | payer BC, SELFPAY ==
--- NOTE | ~2024-03-21 | US_ITS ---
EXAMINATION: US soft tissue head and neck DATE: 03/21/2024 12:05 INDICATION: Generalized enlarged lymph nodes. TECHNIQUE: Multiple grayscale and Doppler ultrasound images of the head and neck were obtained. COMPARISON: None FINDINGS: There is a normal superficial lymph node in left posterior neck in the patient's area of co ncern. IMPRESSION: 1. No abnormal mass or lymphadenopathy. Reviewed, dictated and finalized at location A.
== END 2024-03-21 11:53 | disposition home or self-care (01) ==
PROVIDERS: PCP Family Medicine; Visit Provider Student in an Organized Health Care Education/Training Program
DX: R59.1 Generalized enlarged lymph nodes (principal)
CPT/HCPCS: 76536

== ENCOUNTER 2024-09-14 13:20 | Outpatient (CLI) | payer BC, SELFPAY ==
--- NOTE | ~2024-09-14 | DEXA_ITS ---
Bone Density Report Name: DINESH MAHER Age: 64 Sex: Female Ethnicity: White Date of : 1960 Indication: osteopenia; height loss; cancer; hysterectomy; Referring Provider: CHERELLE LEON Study: Bone densitometry was performed. Exam Date: September 14, 2024 Accession number: [id number] Bone Density: Region BMD T-score Z-score Classification AP Spine(L1-L4) 1.049 0.0 1.8 Normal Femoral Neck (Left) 0.668 -1.6 -0.1 Osteopenia Total Hip (Left) 0.896 -0.4 0.8 Normal Femoral Neck (Right) 0.644 -1.8 -0.4 Osteopenia Total Hip (Right) 0.893 -0.4 0.8 Normal Total Hip Mean 0.895 -0.4 0.8 Normal World Health Organization criteria for BMD impression classify patients as: Normal (T-score at or above -1.0), Osteopenia (T-score between -1.0 and -2.5), or Osteoporosis (T-score at or below -2.5). Previous Exams: Region Exam Age BMD T-score BMD Change BMD Change Date g/cm2 vs Baseline vs Previous AP Spine (L1-L4) 09/14/2024 64 1.049 0.0 0.158 (17.8%)* 0.135 (14.8%)# 10/06/2017 57 0.914 -1.2 0.023 (2.6%)# 0.024 (2.7%)* 06/06/2015 55 0.890 -1.4 -0.001 (-0.1%) -0.001 (-0.1%) 06/03/2013 53 0.890 -1.4 Total Hip(Left) 09/14/2024 64 0.896 -0.4 0.033 (3.8%)* 0.040 (4.7%)# 10/06/2017 57 0.856 -0.7 -0.007 (-0.9%) -0.022 (-2.5%) 06/06/2015 55 0.878 -0.5 0.014 (1.7%)# 0.014 (1.7%)# 06/03/2013 53 0.863 -0.6 Total Hip(Right) 09/14/2024 64 0.893 -0.4 0.009 (1.0%) 0.020 (2.3%)# 10/06/2017 57 0.873 -0.6 -0.011 (-1.2%) 0.002 (0.3%) 06/06/2015 55 0.871 -0.6 -0.013 (-1.5%) -0.013 (-1.5%) 06/03/2013 53 0.884 -0.5 *Denotes significance at 95% confidence level, LSC for AP Spine = 0.022 g/cm2, LSC for Total Hip = 0.027 g/cm2 # Denotes dissimilar scan types or analysis methods Clinical Information Provided by Patient: Has used the following medications: Actonel (i.e. risedronate), Fosamax (i.e. alendronate), Vitamin D, Calcium Has the following medical conditions: Cancer, Hysterectomy Patient maximum height was 61 Drinks caffeinated beverages Onset of menses at age 10 Number of children 2 Impression: The patient has low bone mass, based on the Right Femoral Neck T-score. No significant bone loss was observed. Discussion: BONE DENSITY IS LOW AT ONE OR MORE SKELETAL SITES. This patient's lowest T-score is low at one or more skeletal sites. It meets the World Health Organization's (WHO) criteria for ?low bone mass? (T-score between -1.0 and -2.5). The patient's 10-year risk of fracture as calculated by FRAX is less than the threshold where pharmacological therapy is recommended by the National Osteoporosis Foundation (NOF). However, all treatment decisions require clinical judgment and consideration of individual patient factors, including patient preferences, comorbidities, previous drug use, risk factors not captured in the FRAX model (e.g., frailty, falls, vitamin D deficiency, increased bone turnover, interval significant decline in bone density) and possible under or overestimation of fracture risk by FRAX. The patient should follow a healthful lifestyle (good nutrition with adequate calcium and vitamin D, and appropriate weight-bearing exercise). Follow-Up: Consider repeating this study in 2 to 3 years to reassess this patient's status, or sooner if there is some new clinical indication. Reported by: WILL on 09/14/2024 2:02:00 PM. Reviewed, dictated and finalized at location A. [facility]
--- OUTSIDE RECORDS SUMMARY | 2024-09-14 15:00 | XMS_ITS | Encounter Summary ---
Author Organization [facility] Address [address] [place], [place] [address] [address] Care Team Providers Care Gluing Pressman Name Role Phone Soraya Mak MD Primary Care Provider [phone] Encounter Details Date Type Department Care Team (Late st Contact Info) Description 07/08/2019 Lab Requisition [facility] [address] [facility], [facility] [place] [address] Jennifer Fernandez MD [address] [facility] 3 [place] [address] Social History Tobacco Use Types Packs/Day Years Used Date Smoking Tobacco: Never Assessed Sex and Gender Information Value Date Recorded Sex Assigned at Not on file Gender Identity Not on file Sexual Orientation Not on file documented as of this encounter Plan of Treatment Not on file documented as of this encounter Procedures Procedure Name Priority Date/Time Associated Diagnosis Comments DERMATOPATHOLOGY Routine 07/07/2019 12:0 0 AM NEUROPSYCHOLOGY MEDICAL CONSULTANT documented in this encounter Results * DERMATOPATHOLOGY (07/07/2019 12:00 AM NEUROPSYCHOLOGY MEDICAL CONSULTANT) Case Report Dermatopathology Report Case: [id number] Authorizing Provider: Jennifer Fernandez MD Collected: 07/07/2019 12:00 AM Ordering Location: [facility] Received: 07/08/2019 12:51 PM Pathologist: Holly Perkins MD Specimen: Skin, left sup shoulder 0 1:13 PM NEUROPSYCHOLOGY MEDICAL CONSULTANT DERMATOPATHOLOGY LABORATORY Final Diagnosis Specimen A. SKIN, left sup shoulder: DERMAL SCAR RESIDUAL SQUAMOUS CELL CARCINOMA NOT IDENTIFIED (L90.5) 0 1:13 PM NEUROPSYCHOLOGY MEDICAL CONSULTANT DERMATOPATHOLOGY LABORATORY Clinical History R/O SCCIS, Joyner's disease, biopsy proven. 0 1:13 PM [facility] DERMATOPATHOLOGY LABORATORY Gross Description Specimen A: Received is one formalin filled container labeled with the patient's name and designated left sup shoulder. The specimen consists of a non-oriented ellipse of skin measuring [id number]. The epidermal surface consists of a centrally located 7x7mm previous biopsy site. The margin is inked green. The 12 o'clock and 6 o'clock tips are submitted in cassette 1. The remainder of the ellipse is serially sectioned and submitted in cassettes 2-3. Jar 0. 0 1:13 PM [facility] DERMATOPATHOLOGY LABORATORY Microscopic Description Specimen A. SKIN, left sup shoulder: There are fibroblasts and collagen bundles oriented parallel to the skin surface. There are elongated blood vessels, some of which are oriented perpendicular to the skin surface. No residual squamous cell carcinoma is identified. 0 1:13 PM [facility] DERMATOPATHOLOGY LABORATORY Disclaimer An external and internal positive and negative controls are appropriate for the histochemical, immunohistochemical and immunofluorescence stain(s) in this case (if any), except where stated explicitly. The performance characteristics of the stain(s) cited in this report were developed and its performance characteristic determined by the Dermatopathology Laboratory at [facility], directed by Dr. Francesca Starkey. These tests need not be, and therefore are not, approved by the [place] Food and Drug Administration. The tests are used for clinical purposes. Billing Codes Specimen Charges Stain Charges 17025 1 0 1:13 PM NEUROPSYCHOLOGY MEDICAL CONSULTANT DERMATOPATHOLOGY LABORATORY Embedded Images 0 1:13 PM [facility] DERMATOPATHOLOGY LABORATORY Pathology/Cytolog y TISSUE SPECIMEN FROM SKIN / Unknown 07/07/2019 07/08/2019 12:51 PM NEUROPSYCHOLOGY MEDICAL CONSULTANT Jennifer Fernandez MD LAB - PATHOLOGY/CYT OLOGY ORDERABLES DERMATOPATHOLOGY LABORATORY [facility] - Department of Dermatology [address] [facility], 5th [place] [address], [facility] [phone] documented in this encounter Visit Diagnoses Not on filedocumented in this encounter Care Teams Gluing Pressman Relationship Specialty Start Date End Date Soraya Mak MD [address] [place] [address] PCP - General 12/18/17 documented as of this encounter
--- OUTSIDE RECORDS SUMMARY | 2024-09-14 15:00 | XMS_ITS | Encounter Summary ---
Author Organization [facility] Address [address] [place], [place] [address] [address] Care Team Providers Care Dye Mixer Name Role Phone Soraya aMk MD Primary Care Provider Encounter Details Date Type Department Care Team (Late st Contact Info) Description 12/22/2019 Lab Requisition [facility] [address] [facility], [place] [phone] Jennifer Fernandez MD [address] [facility] 3 [place] [address] Social History Tobacco Use Types Packs/Day Years Used Date Smoking Tobacco: Never Assessed Sex and Gender Information Value Date Recorded Sex Assigned at Not on file Gender Identity Not on file Sexual Orientation Not on file documented as of this encounter Plan of Treatment Not on file documented as of this encounter Procedures Procedure Name Priority Date/Time Associated Diagnosis Comments DERMATOPATHOLOGY Routine 12/21/2019 12:0 0 AM CDT documented in this encounter Results * DERMATOPATHOLOGY (12/21/2019 12:00 AM CDT) Case Report Dermatopathology Report Case: [id number] Authorizing Provider: Jennifer Fernandez MD Collected: 12/21/2019 12:00 AM Ordering Location: [facility] Received: 12/22/2019 09:39 AM Pathologist: Corona Starkey MD Specimens: A) - Skin, right hand dorsal B) - Skin, right back 0 2:59 PM CDT DERMATOPATHOLOGY LABORATORY Final Diagnosis Specimen A. SKIN, right hand dorsal: HYPERPLASTIC (HYPERTROPHIC) ACTINIC KERATOSIS WITH ASSOCIATED HUMAN PAPILLOMA VIRUS CHANGES (L57.0) Specimen B. SKIN, right back: BASAL CELL CARCINOMA, SUPERFICIAL MULTIFOCAL (C44.519) 0 2:59 PM CDT DERMATOPATHOLOGY LABORATORY Clinical History A-B: R/O BCC vs SCC, irritated 0 2:59 PM CDT DERMATOPATHOLOGY LABORATORY Gross Description Specimen A: Received is one formalin filled container labeled with the patient's name and designated right hand dorsal. The specimen consists of a shave biopsy measuring 10x9x4 mm, bisected. Jar 0. Specimen B: Received is one formalin filled container labeled with the patient's name and designated right back. The specimen consists of a shave biopsy measuring 8x6x1 mm. Jar 0. 0 2:59 PM CDT DERMATOPATHOLOGY LABORATORY Microscopic Description Specimen A. SKIN, right hand dorsal: There is hyperkeratosis alternating with parakeratosis. There is epidermal hyperplasia with disorderly maturation of keratinocytes with nuclear pleomorphism confined to the lower half of the epidermis. Specimen B. SKIN, right back: Attached to the undersurface of the epidermis, there are small aggregates of basaloid cells with a high nuclear to cytoplasmic ratio and peripheral palisading. 0 2:59 PM CDT DERMATOPATHOLOGY LABORATORY Disclaimer An external and internal positive and negative controls are appropriate for the histochemical, immunohistochemical and immunofluorescence stain(s) in this case (if any), except where stated explicitly. The performance characteristics of the stain(s) cited in this report were developed and its performance characteristic determined by the Dermatopathology Laboratory at [facility], directed by Dr. Francesca Starkey. These tests need not be, and therefore are not, approved by the [place] Food and Drug Administration. The tests are used for clinical purposes. Billing Codes Specimen Charges Stain Charges 29953 08741 1 1 0 2:59 PM CDT DERMATOPATHOLOGY LABORATORY Embedded Images 0 2:59 PM CDT DERMATOPATHOLOGY LABORATORY Pathology/Cytology TISSUE SPECIMEN FROM SKIN / Unknown 12/21/2019 12/22/2019 9:39 AM CDT Miscellaneous samples (specimen) TISSUE SPECIMEN FROM SKIN / Unknown 12/21/2019 12/22/2019 9:39 AM CDT Jennifer Fernandez MD LAB - PATHOLOGY/CYT OLOGY ORDERABLES DERMATOPATHOLOGY LABORATORY [facility] - Department of Dermatology [facility]/[address] [phone] documented in this encounter Visit Diagnoses Not on filedocumented in this encounter Care Teams Dye Mixer Relationship Specialty Start Date End Date Soraya Mak MD [address] [place] [address] PCP - General 12/18/17 documented as of this encounter
--- OUTSIDE RECORDS SUMMARY | 2024-09-14 15:00 | XMS_ITS | Encounter Summary ---
Author Organization [facility] Address [address] [place], [place] [address] [address] Care Team Providers Care Insurance Analyst Name Role Phone Soraya Mak MD Primary Care Provider [phone] Encounter Details Date Type Department Care Team (Late st Contact Info) Description 06/15/2019 Lab Requisition [facility] Lab [address] [facility], [place] [phone] Jennifer Fernandez MD [address] [facility] 3 DEPT [place] [address] Social History Tobacco Use Types Packs/Day Years Used Date Smoking Tobacco: Never Assessed Sex and Gender Information Value Date Recorded Sex Assigned at Not on file Gender Identity Not on file Sexual Orientation Not on file documented as of this encounter Plan of Treatment Not on file documented as of this encounter Procedures Procedure Name Priority Date/Time Associated Diagnosis Comments DERMATOPATHOLOGY Routine 06/14/2019 12:0 0 AM L[facility]MEN documented in this encounter Results * DERMATOPATHOLOGY (06/14/2019 12:00 AM [facility]) Case Report Dermatopathology Report Case: [id number] Authorizing Provider: Jennifer Fernandez MD Collected: 06/14/2019 12:00 AM Ordering Location: [facility] Received: 06/15/2019 06:57 AM Pathologist: Holly Perkins MD Specimens: A) - Skin, right dorsal hand B) - Skin, left superior shoulder 9 11:07 AM [facility] DERMATOPATHOLOGY LABORATORY Final Diagnosis Specimen A. SKIN, right dorsal hand: HYPERPLASTIC (HYPERTROPHIC) ACTINIC KERATOSIS (L57.0) Specimen B. SKIN, left superior shoulder: SQUAMOUS CELL CARCINOMA IN SITU (SIMMONS'S DISEASE) (D04.62) 9 11:07 AM [facility] DERMATOPATHOLOGY LABORATORY Clinical History A-B: BCC vs SCC, non-healing. 11:07 AM [facility] DERMATOPATHOLOGY LABORATORY Gross Description Specimen A: Received is one formalin filled container labeled with the patient's name and designated right dorsal hand. The specimen consists of a shave measuring 40s1l3ep. Jar 0. Specimen B: Received is one formalin filled container labeled with the patient's name and designated left superior shoulder. The specimen consists of a shave measuring 3i4z7wj. Jar 0. 11:07 AM [facility] DERMATOPATHOLOGY LABORATORY Microscopic Description Specimen A. SKIN, right dorsal hand: There is hyperkeratosis alternating with parakeratosis. There is epidermal hyperplasia with disorderly maturation of keratinocytes with nuclear pleomorphism confined to the lower half of the epidermis. Specimen B. SKIN, left superior shoulder: The epidermis shows parakeratosis, full thickness disorderly maturation of keratinocytes, mitoses at different levels, and dyskeratotic cells. 11:07 AM [facility] DERMATOPATHOLOGY LABORATORY Disclaimer An external and internal positive and negative controls are appropriate for the histochemical, immunohistochemical and immunofluorescence stain(s) in this case (if any), except where stated explicitly. The performance characteristics of the stain(s) cited in this report were developed and its performance characteristic determined by the Dermatopathology Laboratory at [facility], directed by Dr. Francesca Starkey. These tests need not be, and therefore are not, approved by the [place] Food and Drug Administration. The tests are used for clinical purposes. Billing Codes Specimen Charges Stain Charges 78933 53723 1 1 11:07 AM [facility] DERMATOPATHOLOGY LABORATORY Embedded Images 11:07 AM [facility] DERMATOPATHOLOGY LABORATORY Pathology/Cytology TISSUE SPECIMEN FROM SKIN / Unknown 06/14/2019 06/15/2019 6:57 AM [facility] Miscellaneous samples (specimen) TISSUE SPECIMEN FROM SKIN / Unknown 06/14/2019 06/15/2019 6:57 AM [facility] Jennifer Fernandez MD LAB - PATHOLOGY/CYT OLOGY ORDERABLES DERMATOPATHOLOGY LABORATORY [facility] - Department of Dermatology [address] [facility], 5th [place] [address], [facility] [phone] documented in this encounter Visit Diagnoses Not on filedocumented in this encounter Care Teams Insurance Analyst Relationship Specialty Start Date End Date Soraya Mak MD [address] [place] [address] PCP - General 12/18/17 documented as of this encounter
--- OUTSIDE RECORDS SUMMARY | 2024-09-14 15:00 | XMS_ITS | Encounter Summary ---
Author Organization [facility] Address [address] [place], [place] [address] [address] Care Team Providers Care Slip Cover Estimator Name Role Phone Soraya Mak MD Primary Care Provider [phone] Encounter Details Date Type Department Care Team (Late st Contact Info) Description 06/09/2018 Lab Requisition [facility] Care DermPath Lab [address] [facility], [place] [address] Jennifer Fernandez MD [address] [facility] 3 [place] [address] Social History Tobacco Use Types Packs/Day Years Used Date Smoking Tobacco: Never Assessed Sex and Gender Information Value Date Recorded Sex Assigned at Not on file Gender Identity Not on file Sexual Orientation Not on file documented as of this encounter Plan of Treatment Not on file documented as of this encounter Procedures Procedure Name Priority Date/Time Associated Diagnosis Comments DERMATOPATH TECHNICAL REPORT Routine 06/08/2018 12:00 AM UNIVERSITY MANAGER documented in this encounter Results * DERMATOPATH TECHNICAL REPORT (06/08/2018 12:00 AM UNIVERSITY MANAGER) Case Report Dermatopathology Report Case: [id number] Authorizing Provider: Jennifer Fernandez MD Collected: 06/08/2018 12:00 AM Pathologist: Holly Perkins MD Received: 06/09/2018 06:46 AM Specimen: Skin, right forehead 8 11:48 AM UNIVERSITY MANAGER DERMATOPATHOLOGY LABORATORY Clinical History HAK vs SCC vs ISK. Non-healing, failed LN2. 8 11:48 AM UNIVERSITY MANAGER DERMATOPATHOLOGY LABORATORY Gross Description Specimen A: Received is one formalin filled container labeled with the patient's name and designated right forehead. The specimen consists of a shave measuring [id number]. Jar 0. [facility] Dermatopathology Laboratory performed the technical component only. 8 11:48 AM [facility] DERMATOPATHOLOGY LABORATORY Embedded Images 11:48 AM [facility] DERMATOPATHOLOGY LABORATORY DISCLAIMER An external and internal positive and negative controls are appropriate for the histochemical, immunohistochemical and immunofluorescence stain(s) in this case (if any), except where stated explicitly. The performance characteristics of the stain(s) cited in this report were developed and its performance characteristic determined by the Dermatopathology Laboratory at [facility]. These tests need not be, and therefore are not, approved by the [place] Food and Drug Administration. The tests are used for clinical purposes. 8 11:48 AM [facility] DERMATOPATHOLOGY LABORATORY Pathology/Cytolog y TISSUE SPECIMEN FROM SKIN / Unknown 06/08/2018 06/09/2018 6:46 AM UNIVERSITY MANAGER Jennifer Fernandez MD LAB - PATHOLOGY/CYT OLOGY ORDERABLES DERMATOPATHOLOGY LABORATORY [facility] - Department of Dermatology [address] [place] [address], 5th Floor Lab [address] [phone] documented in this encounter Visit Diagnoses Not on filedocumented in this encounter Care Teams Slip Cover Estimator Relationship Specialty Start Date End Date Soraya Mak MD [address] [place] [address] PCP - General 12/18/17 documented as of this encounter
--- OUTSIDE RECORDS SUMMARY | 2024-09-14 15:00 | XMS_ITS | Encounter Summary ---
Author Organization [facility] Address [address] [place] [address] Care Team Providers Care Doctor Assistant Name Role Phone Soraya Mak MD Primary Care Provider Encounter Details Date Type Department Care Team (Late st Contact Info) Description 12/10/2018 Lab Requisition [facility] Care Derm[facility] Lab [address] [facility], [place] [address] Jennifer Fernandez MD [address] [facility] 3 [place] [address] Social History Tobacco Use Types Packs/Day Years Used Date Smoking Tobacco: Never Assessed Sex and Gender Information Value Date Recorded Sex Assigned at Not on file Gender Identity Not on file Sexual Orientation Not on file documented as of this encounter Plan of Treatment Not on file documented as of this encounter Procedures Procedure Name Priority Date/Time Associated Diagnosis Comments DERMATOPATHOLOGY Routine 12/09/2018 12:0 0 AM CDT documented in this encounter Results * DERMATOPATHOLOGY (12/09/2018 12:00 AM CDT) Case Report Dermatopathology Report Case: [id number] Authorizing Provider: Jennifer Fernandez MD Collected: 12/09/2018 12:00 AM Pathologist: Holly Perkins MD Received: 12/10/2018 11:47 AM Specimen: Skin, left lat calf 9 1:11 PM CDT DERMATOPATHOLOGY LABORATORY Final Diagnosis Specimen A. SKIN, left lat calf: POROKERATOSIS (Q82.8) NOT PRESENT AT SAMPLED MARGIN 9 1:11 PM CDT DERMATOPATHOLOGY LABORATORY Clinical History BCC. Cuts shaving, growing, non-healing. Check margins. 1:11 PM CDT DERMATOPATHOLOGY LABORATORY Gross Description Specimen A: Received is one formalin filled container labeled with the patient's name and designated left lat calf. The specimen consists of a shave measuring 4t2h8ku. The margin is inked green. Jar 0. 1:11 PM CDT DERMATOPATHOLOGY LABORATORY Microscopic Description Specimen A. SKIN, left lat calf: There is a sparse to moderately dense lichenoid lymphohistiocytic infiltrate, a thinned epidermis, and cornoid lamella formation. This lesion is not present at the sampled margin of the specimen. 1:11 PM CDT DERMATOPATHOLOGY LABORATORY Disclaimer An external and internal positive and negative controls are appropriate for the histochemical, immunohistochemical and immunofluorescence stain(s) in this case (if any), except where stated explicitly. The performance characteristics of the stain(s) cited in this report were developed and its performance characteristic determined by the Dermatopathology Laboratory at [facility], directed by Dr. Francesca Starkey. These tests need not be, and therefore are not, approved by the [place] Food and Drug Administration. The tests are used for clinical purposes. Billing Codes Specimen Charges Stain Charges 38902 1 1:11 PM CDT DERMATOPATHOLOGY LABORATORY Embedded Images 1:11 PM CDT DERMATOPATHOLOGY LABORATORY Pathology/Cytolog y TISSUE SPECIMEN FROM SKIN / Unknown 12/09/2018 12/10/2018 11:47 AM CDT Jennifer Fernandez MD LAB - PATHOLOGY/CYT OLOGY ORDERABLES DERMATOPATHOLOGY LABORATORY [facility] - Department of Dermatology [address] [facility], 5th [place] [address], [facility] [phone] documented in this encounter Visit Diagnoses Not on filedocumented in this encounter Care Teams Doctor Assistant Relationship Specialty Start Date End Date Soraya Mak MD [address] [place] [address] PCP - General 12/18/17 documented as of this encounter
--- OUTSIDE RECORDS SUMMARY | 2024-09-14 15:00 | XMS_ITS | Encounter Summary ---
Author Organization [facility] Address [address] [place], [place] [address] [address] Care Team Providers Care Chief Power Dispatcher Name Role Phone Soraya Mak MD Primary Care Provider [phone] Encounter Details Date Type Department Care Team (Late st Contact Info) Description 01/13/2020 Lab Requisition [facility] D[facility] Lab [address] [facility], [facility] [place] [address] Jennifer Fernandez MD [address] [facility] 3 [place] [address] Social History Tobacco Use Types Packs/Day Years Used Date Smoking Tobacco: Never Assessed Sex and Gender Information Value Date Recorded Sex Assigned at Not on file Gender Identity Not on file Sexual Orientation Not on file documented as of this encounter Plan of Treatment Not on file documented as of this encounter Procedures Procedure Name Priority Date/Time Associated Diagnosis Comments DERMATOPATHOLOGY Routine 01/12/2020 12:0 0 AM CDT documented in this encounter Results * DERMATOPATHOLOGY (01/12/2020 12:00 AM CDT) Case Report Dermatopathology Report Case: [id number] Authorizing Provider: Jennifer Fernandez MD Collected: 01/12/2020 12:00 AM Ordering Location: [facility] Lab Received: 01/13/2020 06:39 AM Pathologist: Doretha Hartman MD Specimen: Skin, right back 0 11:15 AM CDT DERMATOPATHOLOGY LABORATORY Final Diagnosis Specimen A. SKIN, right back: BASAL CELL CARCINOMA (C44.519) NOT PRESENT AT MARGIN DERMAL SCAR (L90.5) (see microscopic description) 0 11:15 AM CDT DERMATOPATHOLOGY LABORATORY Clinical History BCC, biopsy proven. See prior biopsy [id number] 0 11:15 AM CDT DERMATOPATHOLOGY LABORATORY Gross Description Specimen A: Received is one formalin filled container labeled with the patient's name and designated right back. The specimen consists of a non-oriented ellipse of skin measuring [id number] mm. The epidermal surface is unremarkable. The margin is inked green. The 12 o'clock tip is subbmited in cassette 1 and the 6 o'clock tip is submitted in cassette 2. The remainder of the ellipse is serially sectioned and submitted in cassette 3-4 . Jar 0. 0 11:15 AM CDT DERMATOPATHOLOGY LABORATORY Microscopic Description Specimen A. SKIN, right back: Within the dermis there are aggregates of basaloid cells with a high nuclear to cytoplasmic ratio and peripheral palisading. The tumor is present in tissue block A1, however is no longer present after the tissue is rotated 180 degrees and recut closer to true margin. There are fibroblasts and collagen bundles oriented parallel to the skin surface with elongated blood vessels, some of which are oriented perpendicular to the skin surface. 0 11:15 AM CDT DERMATOPATHOLOGY LABORATORY Disclaimer An external and internal positive and negative controls are appropriate for the histochemical, immunohistochemical and immunofluorescence stain(s) in this case (if any), except where stated explicitly. The performance characteristics of the stain(s) cited in this report were developed and its performance characteristic determined by the Dermatopathology Laboratory at [facility], directed by Dr. Francesca Starkey. These tests need not be, and therefore are not, approved by the [place] Food and Drug Administration. The tests are used for clinical purposes. Billing Codes Specimen Charges Stain Charges 47904 1 0 11:15 AM CDT DERMATOPATHOLOGY LABORATORY Embedded Images 0 11:15 AM CDT DERMATOPATHOLOGY LABORATORY Pathology/Cytolog y TISSUE SPECIMEN FROM SKIN / Unknown 01/12/2020 01/13/2020 6:39 AM CDT Jennifer Fernandez MD LAB - PATHOLOGY/CYT OLOGY ORDERABLES DERMATOPATHOLOGY LABORATORY [facility] - Department of Dermatology Information Technology Data Analyst [place]/[address] [phone] documented in this encounter Visit Diagnoses Not on filedocumented in this encounter Care Teams Chief Power Dispatcher Relationship Specialty Start Date End Date Soraya Mak MD [address] [place] [address] PCP - General 12/18/17 documented as of this encounter
--- OUTSIDE RECORDS SUMMARY | 2024-09-14 15:01 | XMS_ITS | Referral Summary ---
Author Organization [facility] [place] [address] [place] [address] [address] [place] [address] Care Team Providers Care Electrical Prospector Name Role Phone Soraya Mak MD Primary Care Provider + [phone] Cristine Ribeiro MD Unavailable + Claudette Carvajal NP Unavailable [phone] Ben Mclaughlin MD Unavailable + Vida Reyez MD Unavailable [phone] Encounters Date Type Department Care Team Description 09/08/2024 2:30 PM CDT Office Visit [facility] Cardiology [address] [place] [address] [address] [place] [address] Brian Swan MD Mixed hyperlipidemia (Primary Dx); Family history of coronary artery disease; Aortic atherosclerosis; Premature beats from Last 3 Months Allergies Active Allergy Reactions Criticality Noted Date Comments Amoxicillin Swelling Medium 09/08/2023 Lips swell Medications calcium carbonate-vitami n D3 (CALTRATE WITH VITAMIN D3) 1,500 mg (600mg elemental) -800 unit per tablet Take as directed 0 0 008 Active triamcinolone (NASACORT) 55 mcg nasal inhaler Administer 2 sprays into each nostril daily Active levothyroxine (SYNTHROID, LEVOTHROID) 75 mcg tablet Take 1 tablet (75 mcg total) by mouth daily Active aspirin 81 mg tablet 02/24/2017Aspirin , po solid 81 mg Tablet, delayed release (enteric coated)POdailyCur rent Medication Active fexofenadine (LARRY) 60 mg tablet 02/24/2017Allegra allergy, po solid 60 mg TabletPOas directedCurrent Medication Active estradiol (ESTRACE) 0.01 % (0.1 mg/gram) vaginal cream 02/24/2017Estradi ol 0.01% vag cream 0.01 % Cream with applicatorPer vaginadaily as directedCurrent Medication Active cholecalciferol (VITAMIN D-3) 1,000 unit Take 1 tablet/capsule (1,000 Units total) by mouth daily Active ketotifen (ZADITOR) 0.025 % ophthalmic solutionIndicati ons:Allergic Conjunctivitis 1 drop 2 (two) times a day as needed Active meloxicam (MOBIC) 15 mg tablet Take 1 tablet (15 mg total) by mouth daily 023 Active rosuvastatin (CRESTOR) 40 mg tabletIndication s:Mixed hyperlipidemia TAKE 1 TABLET(40 MG) BY MOUTH DAILY 90 tablet 1 025 Active atenoloL (TENORMIN) 50 mg tabletIndication s:Palpitations,V entricular premature beats TAKE 1 TABLET(50 MG) BY MOUTH DAILY 90 tablet [address] (VOLTAREN) 50 mg EC tablet Take 50 mg by mouth daily as needed 2024 Discontinued( Therapy completed) atenoloL (TENORMIN) 50 mg tabletIndication s:Palpitations,V entricular premature beats TAKE 1 TABLET(50 MG) BY MOUTH DAILY 90 tablet 024 2024 Discontinued Active Problems Problem Noted Date Diagnosed Date Aortic atherosclerosis 09/08/2023 Malignant neoplasm of centra l portion of right breast in female, estrogen receptor negative 09/08/2023 Mixed hyperlipidemia 08/02/2018 Hx of breast reconstruction 12/22/2017 Overview (12/22/2017): Added automatically from request for surgery [id number] Premature beats 11/12/2013 Overview (10/01/2016): PREMATURE BEATS NEC Family history of coronary artery disease 2012 Overview (10/02/2016): Family history of premature CAD Personal history of breast cancer 01/01/1999 Cancer Staging:Clinical stage from 01/01/1999: M0 - Signed by Huy Clifford MD on 03/08/2018 Resolved Problems Problem Noted Date Diagnosed Date Resolved Date Elevated blood pressure reading 09/08/2023 09/08/2024 H/O syncope 07/14/2017 03/26/2021 Ventricular premature beats 02/08/2016 07/28/2019 Overview (10/01/2016): PVCs (premature ventricular contractions) Hypercholesterolemia 02/08/2016 019 Overview (10/02/2016): Hypercholesterolemia Palpitations 11/12/2013 03/26/2021 Overview (10/02/2016): PALPITATIONS Immunizations Immunization Administration Dates Next Due Influenza, Unspecified 03/08/2017 Tdap 03/03/2019 Social History Tobacco Use Types Packs/Day Years Used Date Smoking Tobacco: Never Smokeless Tobacco: Never Tobacco Cessation:Counseling Given: Not Answered Alcohol Use Standard Drinks/Week Comments Yes 2 (1 standard drink = 0.6 oz pur e alcohol) monthly AUDIT-C Answer Date Recorded Q1: How often do you have a drink containing alc ohol? Monthly or less 03/25/2022 Q2: How many drinks containi ng alcohol do you have on a typical day when you are drinking? 1 or 2 03/25/2022 Frequency of Binge Drinking Not on file 02/28 Comments No Sex and Gender Information Value Date Recorded Sex Assigned at Not on file Legal Sex Female 12:23 AM GERIATRIC NURSING ASSISTANT Gender Identity Not on file Sexual Orientation Not on file Last Filed Vital Signs Vital Sign Reading Time Taken Comments Blood Pressure 122/80 09/08/2024 2:24 PM CDT Pulse 62 09/08/2024 2:24 PM CDT Temperature 36.8 C (98.3 F) 03/25/2022 9:24 AM CDT Respiratory Rate 17 03/25/2022 9:24 AM CDT Oxygen Saturation 98% 09/08/2024 2:24 PM CDT Inhaled Oxygen Concentration - - Weight 55.6 kg (122 lb 9.6 oz) 09/08/2024 2:24 P M CDT Height 149.9 cm (4' 11 ) 09/08/2024 2:24 PM CDT Body Mass Index 24.76 09/08/2024 2:24 PM CDT Plan of Treatment Not on file Insurance Care Teams Electrical Prospector Relationship Specialty Start Date End Date Soraya Mak MD PCP - General 03/07/20 Cristine Ribeiro MD [address] [facility] [address] [place] [address] Referring Physician Obstetrics and Gynecology 03/26/21 Claudette Carvajal NP [facility] [place] [address] Nurse Practitioner Medical Oncology 03/26/21 Ben Mclaughlin MD [address] [facility] [address] [place] [address] Referring Physician Orthopedic Surgery 03/26/21 Vida Reyez MD [address] [facility] [address] [place] [address] Consulting Physician Cardiology 03/26/21
--- OUTSIDE RECORDS SUMMARY | 2024-09-14 15:01 | XMS_ITS | Clinical Summary ---
Author Organization [facility] [place] [address] [place] [address] Care Team Providers Care Security Rep Name Role Phone Soraya Mak MD Primary Care Provider + [phone] Cristine Ribeiro MD Unavailable + Claudette Carvajal NP Unavailable [phone] Ben Mclaughlin MD Unavailable + [facility] MD Unavailable [phone] Allergies Active Allergy Reactions Criticality Noted Date [...] Tablet, delayed release (enteric coated)POdailyCur rent Medication 017 Active fexofenadine (LARRY) 60 mg tablet 02/24/2017Allegra allergy, po solid 60 mg TabletPOas directedCurrent Medication 017 Active estradiol (ESTRACE) 0.01 % (0.1 mg/gram) vaginal cream 02/24/2017Estradi ol 0.01% vag cream 0.01 % Cream with applicatorPer vaginadaily as directedCurrent Medication 017 Active cholecalciferol (VITAMIN D-3) 1,000 unit Take [...] (12/22/2017): Added automatically from request for surgery [id number] Premature beats 11/12/2013 Overview (10/01/2016): PREMATURE BEATS [...] Hypercholesterolemia Palpitations 11/12/2013 03/26/2021 Overview (10/02/2016): PALPITATIONS Encounters Date Type Department Care Team Description 09/08/2024 2:30 PM CDT Office Visit [facility] Medical [facility] Cardiology [address] [place] [address] Brian Swan MD Mixed hyperlipidemia (Primary Dx); Family history of coronary artery disease; Aortic atherosclerosis; Premature beats from Last 3 Months Immunizations Immunization Administration Dates Next Due Influenza, Unspecified 03/08/2017 Tdap 03/03/2019 Surgical History Surgery Date Site/Laterality Comments BREAST BIOPSY MASTECTOMY 06/29/2008 - 06/28/2009 Left BREAST RECONSTRUCTION SKIN CANCER EXCISION 2019 MASTECTOMY 06/29/1998 - 06/28/1999 Right TOTAL ABDOMINAL HYSTERECTOMY W/ BILATERAL SALPINGOOPHORECTOMY 11/28/1999 - 12/27/1999 COLONOSCOPY 06/29/2017 - 06/28/2018 Medical History Medical History Date Comments 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 Hypothyroidism Osteopenia Seasonal allergies Sciatica Family history of coronary artery disease 02/01/20 13 Family history of premature CAD PVC (premature ventricular contraction) Family History Medical History Relation Name Comments Hyperlipidemia Brother Skin cancer Brother Atrial fibrillation Father Celiac disease Father Skin cancer Father heart valve Father Colon cancer Mother Heart disease Mother Other Mother CABG 64 yo; Skin cancer Sister 1 Thyroid cancer Sister 1 Skin cancer Sister 2 Skin cancer Sister 3 Heart disease Sister 4 Skin cancer Sister 4 No Known Problems Sister 5 Relation Name Status Comments Brother Alive Father Alive Mother (Age 78) 57 when di agnosed Sister 1 Alive Sister 2 Alive Sister 3 Alive Sister 4 Alive Sister 5 Alive Social History Tobacco Use Types Packs/Day Years [...] on file 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 Gender Identity Not on file Sexual Orientation Not on file Obstetrics History Last Filed Vital Signs Vital Sign Reading [...] 09/08/2024 2:24 PM CDT Plan of Treatment Health Maintenance Due Date Last Done Comments Breast Cancer Screening-Mammogram 1960 Colon Cancer Screening-Colonoscopy 1960 Depression Screening 1960 Hepatitis C Screening 1960 Hepatitis B Screening 01/07/1978 Regular Well Visit/Exam 18-64 01/07/1978 Zoster Vaccine (2 of 3) 08/24/2010 06/29/2010 Influenza Vaccine (#1) 2024 9, 03/08/2017, 04/13/2015, Additional history exists DTaP/Tdap/Td Vaccine (3 - Td or Tdap) 03/03/2029 03/03/2019, 06/29/2010 Pneumococcal vaccine <65 Aged Out No longer eligible based on patient's age to complete this topic Insurance Care Teams Security Rep Relationship Specialty Start Date End Date Soraya Mak MD PCP - General 03/07/20 Cristine Ribeiro MD [address] [facility] [address] [place] [address] Referring Physician Obstetrics and Gynecology 03/26/21 Claudette Carvajal NP [address] [place] [address] Nurse Practitioner Medical Oncology 03/26/21 Ben Mclaughlin MD [address] [facility] [address] [place] [address] Referring Physician Orthopedic Surgery 03/26/21 Vida Reyez MD [address] [facility] [address] [place] [address] Consulting Physician Cardiology 03/26/21
--- OUTSIDE RECORDS SUMMARY | 2024-09-14 15:01 | XMS_ITS | Clinical Summary ---
Author Organization [facility] Address [address] [place] [address] Care Team Providers Care Auto Adjudication Specialist Name Role Phone Soraya Mak MD Primary Care Provider Source Comments [facility] [employer],non-owned Affiliates and Associated Physician Practices is amultiple site organization consisting of ambulatory clinics and hospital sitesin [place], [place], [place] and [place]. This disclosure is being madepursuant to the Care Everywhere program and may not contain all information available regarding this patient. Last updated 18.[facility] Social History Tobacco Use Types Packs/Day Years Used Date Smoking Tobacco: Never Assessed Sex and Gender Information Value Date Recorded Sex Assigned at Not on file Gender Identity Not on file Sexual Orientation Not on file Plan of Treatment Health Maintenance Due Date Last Done Comments COLOGUARD (AGES 45-75) - COL ON CA SCREENING 1960 COLON MONITORING 1960 COLONOSCOPY - COLON CA SCREENING 1960 CT COLONOGRAPHY - COLON CA SCREENING 1960 Colorectal Cancer Screening 1960 FIT - COLON CA SCREENING 1960 FLEX SIG - COLON CA SCREENING 1960 LIPID TESTING 1960 MAMMOGRAM 1960 PAP SMEAR 1960 HIV SCREENING 01/07/1975 HEPATITIS C SCREENING 01/03/1978 DTAP/TDAP/TD VACCINES (1 - Tdap) 01/07/1979 PNEUMOCOCCAL VACCINE 50+ (1 of 1 - PCV) 01/07/2010 ZOSTER VACCINE (1 of 2) 01/07/2010 COVID-19 VACCINE ( - 2023-2 5 season) 2024 INFLUENZA VACCINE (#1) 2024 DEPRESSION SCREENING 06/29/2024 Respiratory Syncytial Virus (RSV) Vaccine Pt: or over 60 yrs (1 - 1-dose 75+ series) 01/07/2035 HEPATITIS B VACCINE Aged Out No longe r eligible based on patient's age to complete this topic HIB VACCINE Aged Out No longer eligi ble based on patient's age to complete this topic HPV VACCINE Aged Out No longer eligi ble based on patient's age to complete this topic MENINGOCOCCAL (Group B) VACC INE SHARED DECISION-MAKING Aged Out No longer eligibl e based on patient's age to complete this topic MENINGOCOCCAL GROUPS A/C/Y/W VACCINE Aged Out No longer eligible b ased on patient's age to complete this topic PNEUMOCOCCAL VACCINE Aged Out No long er eligible based on patient's age to complete this topic Care Teams Auto Adjudication Specialist Relationship Specialty Start Date End Date Soraya Mak MD [address] [place] [address] PCP - General 12/18/17
== END 2024-09-14 13:21 | disposition home or self-care (01) ==
LOC: ANHIMG 13:29
PROVIDERS: PCP Nurse Practitioner Obstetrics & Gynecology; Visit Provider Nurse Practitioner Obstetrics & Gynecology
DX: M85.89 Other specified disorders of bone density and structure, multiple sites (principal)
CPT/HCPCS: 77080